=== PATIENT | female | born 1955 | race Caucasian/White ===

== ENCOUNTER → 2018-06-01 | Outpatient (CLI) | payer BC ==
[~2018-06-01] MED LIST: GABA400C PO; LEVO75TA5 PO; POTA15TA9 PO; TRAZ-137 PO; VENL100T PO
== END | disposition home or self-care (01) ==
LOC: RAD 14:24
PROVIDERS: ATTEND Urology
DX: N20.0 Calculus of kidney (principal)
CPT/HCPCS: 74018

== ENCOUNTER 2018-06-02 13:10 | Day surgery (SDC) | payer BC ==
[~2018-06-02] VITALS: Ht 165.1 cm; Wt 60.0 kg
[2018-06-02] MEDS ORDERED: LACTATED RINGERS 1,000 ML IV SCH (13:26)
[2018-06-02] MEDS ORDERED: CEFAZOLIN 1,000 MG ONE (14:00)
[2018-06-02] MEDS ORDERED: MIDAZOLAM 1 MG/ML, 2ML ONE (14:00)
[2018-06-02] MEDS ORDERED: FENTANYL PF 100 MCG/2ML ONE (14:00)
[2018-06-02] MEDS ORDERED: PROPOFOL 10 MG/ML, 20ML ONE (14:00)
[2018-06-02] MEDS ORDERED: FENTANYL PF 100 MCG/2ML IV PRN (16:00)
[2018-06-02] MEDS ORDERED: MIDAZOLAM 1 MG/ML, 2ML IV PRN (16:00)
[2018-06-02] MEDS ORDERED: OXYcodone 5 MG/5 ML ORAL.SOL UDC PO PRN (16:00)
[2018-06-02] MEDS ORDERED: ONDANSETRON 2MG/ML, 2ML IVPush PRN (16:00)
[2018-06-02] MEDS ORDERED: HYDROmorphone 1 MG/ML, 1ML IV PRN (16:00)
[2018-06-02] MEDS ORDERED: MEPERIDINE/PF 25MG/0.5ML IVPush PRN (16:00)
[2018-06-02] MEDS ORDERED: LABETALOL 5MG/ML, 20ML IV PRN (16:00)
[2018-06-02] MEDS ORDERED: OXYcodone 5 MG/5 ML ORAL.SOL UDC ONE (16:07)
== END 2018-06-02 18:15 | disposition home or self-care (01) ==
LOC: OUT 13:10
PROVIDERS: ATTEND Urology
DX: N20.0 Calculus of kidney (principal); E78.5 Hyperlipidemia, unspecified; E03.9 Hypothyroidism, unspecified; F41.9 Anxiety disorder, unspecified; Z98.890 Other specified postprocedural states; Z79.899 Other long term (current) drug therapy
CPT/HCPCS: 52356; 74018; 76001; 82360; 88300; 93005; C1758; C2617; J0690; J2250; J2704; J3010; J7120

== ENCOUNTER → 2018-06-07 | Outpatient (CLI) | payer BC | END | disposition home or self-care (01) | LOC: RAD 14:45 | PROVIDERS: ATTEND Urology | DX: N20.0 Calculus of kidney (principal) | CPT/HCPCS: 74018 ==